=== PATIENT | male | born 1950 | race Caucasian/White ===

== ENCOUNTER → 2018-01-04 09:32 | Outpatient (CLI) | payer MEDICARE, SELFPAY ==
[2018-01-04 11:31] LABS: Absolute Lymphocyte Count 1.45 X10^3/ul (0.83-4.51); Absolute Neutrophil Count 4.1 X10^3/uL (2.0-7.7); Basophil# 0.04 X10^3/uL; Basophil% 0.6 % (0-1); Eosinophil# 0.18 X10^3/uL; Eosinophils% 2.7 % (0-5); Hematocrit 45.9 % (40-54); Hemoglobin 15.4 g/dl (13.0-16.5); Lymphocyte # 1.45 X10^3/ul (4.0); Lymphocyte % 21.8 % (19-41); Mean Corp Hgb Conc 33.6 g/gl (32-36); Mean Corpuscular Hgb 29.4 pg (27.0-32.0); Mean Corpuscular Volume 87.8 fL (80-94); Mean Platelet Vol. 9.4 fl (6.2-12.0); Monocyte# 0.82 X10^3/uL; Monocyte% 12.3 % (0-10); Neutrophil # 4.14 X10^3/uL (2.7-7.7); Neutrophil % 62.3 % (47-70); Platelet Count 281 K/mm3 (150-450); RBC Distribution Width CV 13.1 % (11.6-14.6); RBC Distribution Width SD 42.4 fl (35.1-43.9); Red Blood Count 5.23 M/mm3 (4.6-6.2); White Blood Count 6.7 K/mm3 (4.4-11.0)
[2018-01-04 11:34] LABS: POSITIVE COUNT NO; POSITIVE DIFFERENTIAL NO; POSITIVE MORPHOLOGY NO
[2018-01-04 11:58] LABS: ALB/GLOB Ratio 0.9 RATIO (0.9-2.4); AST(SGOT) 19 U/L (15-37); Alanine Aminotransfer ALT/SGPT 27 U/L (16-61); Albumin, Serum 3.5 g/dL (3.2-5.0); Alkaline Phosphatase 82 U/L (45-117); Anion Gap 6 (5-15); BUN 23 mg/dL (7-18); BUN/Creat Ratio 19.3 RATIO (10-20); Calcium,Total 8.7 mg/dL (8.5-10.1); Chloride 107 mmol/L (98-107); Creatinine, Serum 1.19 mg/dL (0.70-1.30); EST Glomerular Filtration Rate 65 mL/min (>60); Est Glom Filt Rate - Afr Amer 79 mL/min (>60); Globulin 3.8 g/dL (2.2-4.2); Glucose 77 mg/dL (74-106); Potassium 4.3 mmol/L (3.5-5.1); Protein, Total 7.3 g/dL (6.4-8.2); Sodium Level 142 mmol/L (136-145); Thyroid Stim Hormone (TSH) 1.33 uIU/mL (0.358-3.74)
[2018-01-04 12:01] LABS: Vitamin D,25 Hydroxy 45.7 ng/mL (29.95-100.01)
== END ==
PROVIDERS: Family Provider Family Medicine Geriatric Medicine; PCP Family Medicine Geriatric Medicine; Visit Provider Family Medicine Geriatric Medicine
DX: R53.83 Other fatigue (principal); E55.9 Vitamin D deficiency, unspecified
CPT/HCPCS: 36415; 80053; 82306; 84443; 85025

== ENCOUNTER → 2018-06-04 16:59 | Outpatient (CLI) | payer MEDICARE, SELFPAY ==
[2018-06-04 18:45] LABS: M R Staph aureus DNA By PCR Negative (Negative); Probe Check PASS; Specimen Processing Control PASS; Staph aureus DNA By PCR NEGATIVE (Negative)
== END ==
PROVIDERS: Family Provider Family Medicine Geriatric Medicine; PCP Family Medicine Geriatric Medicine; Visit Provider Family Medicine Geriatric Medicine
DX: L03.319 Cellulitis of trunk, unspecified (principal); B95.62 Methicillin resistant Staphylococcus aureus infection as the cause of diseases classified elsewhere
CPT/HCPCS: 87070; 87077; 87186; 87205; 87640

== ENCOUNTER → 2018-07-29 10:06 | Outpatient (CLI) | payer MEDICARE, SELFPAY ==
[2018-07-29 12:34] LABS: Absolute Lymphocyte Count 1.54 X10^3/ul (0.83-4.51); Absolute Neutrophil Count 4.1 X10^3/uL (2.0-7.7); Basophil# 0.05 X10^3/uL; Basophil% 0.8 % (0-1); Eosinophil# 0.26 X10^3/uL; Eosinophils% 3.9 % (0-5); Hematocrit 45.5 % (40-54); Hemoglobin 15.2 g/dl (13.0-16.5); Lymphocyte # 1.54 X10^3/ul (4.0); Lymphocyte % 23.3 % (19-41); Mean Corp Hgb Conc 33.4 g/gl (32-36); Mean Corpuscular Hgb 29.8 pg (27.0-32.0); Mean Corpuscular Volume 89.2 fL (80-94); Mean Platelet Vol. 9.5 fl (6.2-12.0); Monocyte# 0.63 X10^3/uL; Monocyte% 9.5 % (0-10); Neutrophil # 4.06 X10^3/uL (2.7-7.7); Neutrophil % 61.6 % (47-70); Platelet Count 288 K/mm3 (150-450); RBC Distribution Width CV 13.5 % (11.6-14.6); RBC Distribution Width SD 43.6 fl (35.1-43.9); White Blood Count 6.6 K/mm3 (4.4-11.0)
[2018-07-29 12:40] LABS: POSITIVE COUNT NO; POSITIVE DIFFERENTIAL NO; POSITIVE MORPHOLOGY NO
[2018-07-29 12:53] LABS: Vitamin D,25 Hydroxy 29.4 ng/mL (29.95-100.01)
[2018-07-29 12:59] LABS: AST(SGOT) 18 U/L (15-37); Alanine Aminotransfer ALT/SGPT 28 U/L (16-61); Albumin, Serum 3.5 g/dL (3.2-5.0); Alkaline Phosphatase 70 U/L (45-117); Anion Gap 9 (5-15); BUN 23 mg/dL (7-18); BUN/Creat Ratio 17.4 RATIO (10-20); Calcium,Total 8.6 mg/dL (8.5-10.1); Chloride 106 mmol/L (98-107); Creatinine, Serum 1.32 mg/dL (0.70-1.30); EST Glomerular Filtration Rate 58 mL/min (>60); Est Glom Filt Rate - Afr Amer 70 mL/min (>60); Globulin 3.6 g/dL (2.2-4.2); Glucose 89 mg/dL (74-106); Protein, Total 7.1 g/dL (6.4-8.2); Sodium Level 143 mmol/L (136-145); Thyroid Stim Hormone (TSH) 1.29 uIU/mL (0.358-3.74)
[2018-07-30 10:52] LABS: Hep C Antibodies <0.1 s/co ratio (0.0-0.9)
== END ==
PROVIDERS: Family Provider Family Medicine Geriatric Medicine; PCP Family Medicine Geriatric Medicine; Visit Provider Family Medicine Geriatric Medicine
DX: E55.9 Vitamin D deficiency, unspecified (principal); R53.83 Other fatigue; Z12.5 Encounter for screening for malignant neoplasm of prostate; Z13.89 Encounter for screening for other disorder
CPT/HCPCS: 36415; 80053; 82306; 84153; 84443; 85025; 86803; G0103

== ENCOUNTER → 2018-10-29 07:51 | Outpatient (CLI) | payer MEDICARE, OTHER, SELFPAY ==
--- NOTE | 2018-10-29 07:56 | CDU_ITS ---
Reason For Study: Carotid Bruit Rt. Velocities/BP Lt. Velocities/BP Prox CCA 85/23.5 cm/sec. Prox CCA 112/31.4 cm/sec. Mid CCA 101/22.3 cm/sec. Mid CCA 134/33 cm/sec. Dist CCA 93.8/17.6 cm/sec. Dist CCA 97.4/28.3 cm/sec. Prox ICA 64/18.5 cm/sec. Prox ICA 73.3/20.5 cm/sec. Mid ICA 65.2/25.2 cm/sec. Mid ICA 64.8/21 cm/sec. Dist ICA 66.3/20.7 cm/sec. Dist ICA 52.9/19.6 cm/sec. Rt. ICA/CCA = 0.71. Lt. ICA/CCA = 0.65. Prox ECA 84.4/13.7 cm/sec. Prox ECA 88.5/15.8 cm/sec. Rt. Vert. 52.2/13 cm/sec. Lt. Vert. 61/14.1. cm/sec. Right Extracranial There is intimal thickening but no significant atherosclerotic plaque noted in the right common carotid artery. There is heterogeneous, smooth atherosclerotic plaque noted in the right internal carotid artery. There is no significant atherosclerotic plaque noted in the right external carotid artery. Antegrade flow is noted in the right vertebral artery. Left Extracranial There is intimal thickening but no significant atherosclerotic plaque noted in the left common carotid artery. There is homogeneous, smooth atherosclerotic plaque noted in the left internal carotid artery. There is no significant atherosclerotic plaque noted in the left external carotid artery. Antegrade flow is noted in the left vertebral artery. Procedure Carotid Duplex [id number]. Exam performed in department. Interpretation Summary Mild (<50%) stenosis right extracranial internal carotid. Mild (<50%) stenosis left extracranial internal carotid. Flow within the vertebral arteries is antegrade bilaterally. Ordering Physician: Rolando Anna Referring Physician: Rolando Anna Chi Performed By: Gaby Chaudhry RVT and Student
== END ==
PROVIDERS: Family Provider Family Medicine Geriatric Medicine; PCP Family Medicine Geriatric Medicine; Referring Provider Family Medicine Geriatric Medicine; Visit Provider Family Medicine Geriatric Medicine
DX: R09.89 Other specified symptoms and signs involving the circulatory and respiratory systems (principal)
CPT/HCPCS: 93880

== ENCOUNTER → 2019-07-30 09:02 | Outpatient (CLI) | payer MEDICARE, SELFPAY ==
[2019-07-30 12:51] LABS: Absolute Lymphocyte Count 1.81 X10^3/uL (0.83-4.51); Absolute Neutrophil Count 4.3 X10^3/uL (2.0-7.7); Basophil# 0.09 X10^3/uL; Basophil% 1.2 % (0-1); Eosinophil# 0.24 X10^3/uL; Eosinophils% 3.3 % (0-5); Hematocrit 46.2 % (40-54); Hemoglobin 15.1 g/dL (13.0-16.5); Lymphocyte # 1.81 X10^3/ul (4.0); Lymphocyte % 24.9 % (19-41); Mean Corp Hgb Conc 32.7 g/dL (32-36); Mean Corpuscular Hgb 29.5 pg (27.0-32.0); Mean Corpuscular Volume 90.4 fL (80-94); Mean Platelet Vol. 9.9 fl (6.2-12.0); NRBC Flagged by Analyzer 0 % (0-5); Neutrophil % 59.2 % (47-70); Platelet Count 293 K/mm3 (150-450); RBC Distribution Width CV 12.9 % (11.6-14.6); RBC Distribution Width SD 42.6 fl (35.1-43.9); Red Blood Count 5.11 M/mm3 (4.6-6.2); White Blood Count 7.3 K/mm3 (4.4-11.0)
[2019-07-30 13:14] LABS: Vitamin D,25 Hydroxy 44.9 ng/mL (29.95-100.01)
[2019-07-30 13:16] LABS: ALB/GLOB Ratio 1.2 RATIO (0.9-2.4); AST(SGOT) 18 U/L (15-37); Alanine Aminotransfer ALT/SGPT 23 U/L (16-61); Albumin, Serum 3.8 g/dL (3.2-5.0); Alkaline Phosphatase 79 U/L (45-117); Anion Gap 6 (5-15); BUN 19 mg/dL (7-18); BUN/Creat Ratio 15.3 RATIO (10-20); Chloride 107 mmol/L (98-107); Creatinine, Serum 1.24 mg/dL (0.70-1.30); EST Glomerular Filtration Rate 62 mL/min (>60); Est Glom Filt Rate - Afr Amer 75 mL/min (>60); Globulin 3.3 g/dL (2.2-4.2); Glucose 94 mg/dL (74-106); PSA,Total - Annual Screen 0.88 ng/mL (0.00-4.00); Potassium 4.4 mmol/L (3.5-5.1); Protein, Total 7.1 g/dL (6.4-8.2); Sodium Level 141 mmol/L (136-145); Thyroid Stim Hormone (TSH) 1.04 uIU/mL (0.358-3.74)
== END ==
PROVIDERS: Family Provider Family Medicine Geriatric Medicine; PCP Family Medicine Geriatric Medicine; Visit Provider Family Medicine Geriatric Medicine
DX: R53.83 Other fatigue (principal); E55.9 Vitamin D deficiency, unspecified; E23.6 Other disorders of pituitary gland; Z12.5 Encounter for screening for malignant neoplasm of prostate
CPT/HCPCS: 36415; 80053; 82306; 84153; 84403; 84443; 85025; G0103

== ENCOUNTER → 2019-10-20 13:58 | Outpatient (CLI) | payer MEDICARE, OTHER, SELFPAY ==
[2019-10-19 09:21] VITALS: BMI 28.3
== END ==
PROVIDERS: PCP Family Medicine Geriatric Medicine; Referring Provider Physician Assistant; Visit Provider Physician Assistant
DX: J02.9 Acute pharyngitis, unspecified (principal)
CPT/HCPCS: 87070; 87077; 87186

== ENCOUNTER → 2020-08-03 14:24 | Outpatient (CLI) | payer MEDICARE, OTHER, SELFPAY ==
[2019-11-24 08:08] VITALS: BMI 28.3
[2020-08-03 17:17] LABS: Absolute Lymphocyte Count 1.59 X10^3/uL (0.83-4.51); Absolute Neutrophil Count 4.9 X10^3/uL (2.0-7.7); Basophil# 0.08 X10^3/uL; Basophil% 1.1 % (0-1); Eosinophil# 0.25 X10^3/uL; Eosinophils% 3.3 % (0-5); Hematocrit 45.3 % (40-54); Hemoglobin 14.4 g/dL (13.0-16.5); Lymphocyte # 1.59 X10^3/ul (4.0); Lymphocyte % 21.2 % (19-41); Mean Corp Hgb Conc 31.8 g/dL (32-36); Mean Corpuscular Hgb 28.8 pg (27.0-32.0); Mean Corpuscular Volume 90.6 fL (80-94); Mean Platelet Vol. 9.4 fl (6.2-12.0); Monocyte# 0.68 X10^3/uL; Monocyte% 9.1 % (0-10); NRBC Flagged by Analyzer 0 % (0-5); Neutrophil # 4.86 X10^3/uL (2.7-7.7); Neutrophil % 64.9 % (47-70); Platelet Count 303 K/mm3 (150-450); RBC Distribution Width CV 12.9 % (11.6-14.6); RBC Distribution Width SD 42.7 fl (35.1-43.9); White Blood Count 7.5 K/mm3 (4.4-11.0)
[2020-08-03 17:23] LABS: Vitamin D,25 Hydroxy 37.6 ng/mL
[2020-08-03 17:36] LABS: AST(SGOT) 21 U/L (15-37); Alanine Aminotransfer ALT/SGPT 28 U/L (16-61); Albumin, Serum 3.6 g/dL (3.2-5.0); Alkaline Phosphatase 90 U/L (45-117); Anion Gap 7 (5-15); BUN 23 mg/dL (7-18); BUN/Creat Ratio 20.4 RATIO (10-20); Calcium,Total 8.3 mg/dL (8.5-10.1); Chloride 107 mmol/L (98-107); Creatinine, Serum 1.13 mg/dL (0.70-1.30); EST Glomerular Filtration Rate 69 mL/min (>60); Est Glom Filt Rate - Afr Amer 83 mL/min (>60); Globulin 3.5 g/dL (2.2-4.2); Glucose 128 mg/dL (74-106); Potassium 3.6 mmol/L (3.5-5.1); Protein, Total 7.1 g/dL (6.4-8.2); Sodium Level 141 mmol/L (136-145); Thyroid Stim Hormone (TSH) 1.54 uIU/mL (0.358-3.74)
== END ==
PROVIDERS: PCP Family Medicine Geriatric Medicine; Visit Provider Family Medicine Geriatric Medicine
DX: R53.83 Other fatigue (principal); E55.9 Vitamin D deficiency, unspecified; E23.6 Other disorders of pituitary gland; Z12.5 Encounter for screening for malignant neoplasm of prostate
CPT/HCPCS: 36415; 80053; 82306; 84153; 84403; 84443; 85025; G0103

== ENCOUNTER → 2021-02-25 10:44 | Outpatient (CLI) | payer MEDICARE, OTHER, SELFPAY ==
[2019-11-24 08:08] VITALS: BMI 28.3
[2021-02-25 12:24] LABS: Absolute Lymphocyte Count 2.24 X10^3/uL (0.83-4.51); Absolute Neutrophil Count 5.6 X10^3/uL (2.0-7.7); Basophil# 0.06 X10^3/uL; Basophil% 0.7 % (0-1); Eosinophils% 1.1 % (0-5); Hematocrit 45.6 % (40-54); Hemoglobin 15.2 g/dL (13.0-16.5); Lymphocyte # 2.24 X10^3/ul (0.83-4.51); Lymphocyte % 24.5 % (19-41); Mean Corp Hgb Conc 33.3 g/dL (32-36); Mean Corpuscular Hgb 29.4 pg (27.0-32.0); Mean Corpuscular Volume 88.2 fL (80-94); Mean Platelet Vol. 9.5 fl (6.2-12.0); NRBC Flagged by Analyzer 0 % (0-5); Neutrophil # 5.64 X10^3/uL (2.7-7.7); Neutrophil % 61.5 % (47-70); Platelet Count 295 K/mm3 (150-450); RBC Distribution Width CV 12.5 % (11.6-14.6); RBC Distribution Width SD 40.7 fl (35.1-43.9); Red Blood Count 5.17 M/mm3 (4.6-6.2); White Blood Count 9.2 K/mm3 (4.4-11.0)
[2021-02-25 12:32] LABS: Anion Gap 4 (5-15); BUN 23 mg/dL (7-18); BUN/Creat Ratio 20.7 RATIO (10-20); Calcium,Total 8.9 mg/dL (8.5-10.1); Chloride 107 mmol/L (98-107); Creatinine, Serum 1.11 mg/dL (0.70-1.30); EST Glomerular Filtration Rate 70 mL/min (>60); Est Glom Filt Rate - Afr Amer 84 mL/min (>60); Glucose 70 mg/dL (74-106); Sodium Level 141 mmol/L (136-145)
== END ==
PROVIDERS: PCP Family Medicine Geriatric Medicine; Visit Provider Family Medicine Geriatric Medicine
DX: G92 Toxic encephalopathy (principal)
CPT/HCPCS: 36415; 80048; 85025

== ENCOUNTER → 2021-03-09 06:26 | Outpatient (CLI) | payer MEDICARE, OTHER, SELFPAY ==
[2019-11-24 08:08] VITALS: BMI 28.3
[2021-03-01 08:09] VITALS: BMI 28.3
--- NOTE | 2021-03-09 06:37 | MRI_ITS ---
ACR Level 3 findings have been noted. An addendum which confirms receipt of the report will follow. STUDY: MRI BRAIN WITHOUT CONTRAST REASON FOR EXAM: Male, 70 years old. SEIZURE, PT C/O SLEEPING TOO SOUNDLY TECHNIQUE: Standardized multiplanar fat and water weighted pulse sequences were obtained. COMPARISON: None. FINDINGS: Normal size of the ventricles and extra-axial spaces for the patient''s age. There are multiple white matter hyperintensities, distributed throughout the deep white matter tracts of the cerebral hemispheres, consistent with mild chronic white matter ischemic changes. There is a small focal area of increased FLAIR hyperintensity and minimal volume loss involving the right frontal lobe adjacent to the anterior horn (axial image #9 series 5) Normal flow voids within the major intracranial circulation suggesting patency by spin echo criteria. Normal sella turcica, pituitary gland, infundibular stalk, optic chiasm and hypothalamus. Normal tectal plate and pineal gland. Normal midbrain, juwan and medulla. Normal cerebellum. Normal basal cisterns. MRI/Brain without Contrast IMPRESSION: Right frontal lesion. Leading differential considerations include chronic ischemic change, vascular lesion and neoplastic disease. Comparison with prior examinations if available or further evaluation with contrast-enhanced MRI/MRA is recommended. Electronically Signed: Harley Alvarenga MD at 8:48 EDT Tel , Service support ,
== END ==
PROVIDERS: PCP Family Medicine Geriatric Medicine; Referring Provider Family Medicine Geriatric Medicine; Visit Provider Family Medicine Geriatric Medicine
DX: G40.909 Epilepsy, unspecified, not intractable, without status epilepticus (principal)
CPT/HCPCS: 70551

== ENCOUNTER → 2021-03-10 11:22 | Outpatient (CLI) | payer MEDICARE, OTHER, SELFPAY ==
[2021-03-10 08:13] VITALS: BMI 28.3
--- NOTE | 2021-03-10 11:52 | MRI_ITS ---
STUDY: MRI BRAIN WITH CONTRAST REASON FOR EXAM: Male, 70 years old. BRAIN MASS TECHNIQUE: Standardized multiplanar fat and water weighted pulse sequences were obtained. 17cc iv dotarem was administered for the contrast portion of the examination. COMPARISON: 03/09/2021 FINDINGS: No contrast enhancement of the previously described hyperintensity in the right frontal lobe likely consistent with an area of gliosis. No other contrast-enhancing mass.. MRI/Brain WITH Contrast IMPRESSION: Normal enhanced MRI of the brain. Electronically Signed: Amado Lerma MD at 13:51 EDT Tel , Service support ,
--- NOTE | 2021-03-10 11:54 | MRI_ITS ---
STUDY: MRA OF THE HEAD WITHOUT CONTRAST REASON FOR EXAM: Male, 70 years old. BRAIN MASS TECHNIQUE: 3-D [id number] (TOF) imaging was performed with MIPs. The study was performed unenhanced. COMPARISON: None. FINDINGS: Normal bilateral petrous carotid arteries. Normal right cavernous carotid artery with a normal supraclinoid bifurcation. Normal left cavernous carotid artery with a normal supraclinoid bifurcation. Normal right A1 segments of the anterior cerebral artery. Normal left A1 segments of the anterior cerebral artery. Normal intact anterior communicating artery (ACOM). Normal bilateral A2 segments of the anterior cerebral arteries. Normal right M1 and M2 segments of the middle cerebral arteries, with a normal M1 bifurcation. Normal left M1 and M2 segments of the middle cerebral arteries, with a normal M1 bifurcation. Normal right posterior communicating artery (PCOM). Normal left posterior communicating artery (PCOM). Normal bilateral vertebral arteries. Normal basilar artery with a normal basilar bifurcation. The visualized bilateral superior cerebellar (SCA) arteries are normal. Normal bilateral P1, P2 and visualized P3 segments of the posterior cerebral arteries. There is no demonstrated aneurysm of the [place]. There is no major vessel occlusion or hemodynamically significant stenosis. There is no demonstrated abnormality of the visualized brain. MRI/MRA Head ONLY without Contrast IMPRESSION: Normal MRA of the head Electronically Signed: Amado Lerma MD at 13:53 EDT Tel , Service support ,
--- NOTE | 2021-03-10 11:55 | MRI_ITS ---
STUDY: MRA NECK WITH AND WITHOUT CONTRAST REASON FOR EXAM: Male, 70 years old. BRAIN MASS TECHNIQUE: 3-D qpfu-wc-kktiig (TOF) imaging was performed in an 1.5 T MRI scanner. iv dotarem 17cc was administered for the contrast enhanced images. COMPARISON: None. FINDINGS: RIGHT CAROTID ARTERIES: Normal right common carotid artery (CCA). Normal right common carotid bulb. Normal origin of the right internal carotid (ICA) artery without a hemodynamically significant stenosis. Normal visualized cervical portion of the right internal carotid artery. Normal origin of the right external carotid artery (ECA). LEFT CAROTID ARTERIES: Normal left common carotid artery (CCA). Normal left common carotid bulb. Normal origin of the left internal carotid (ICA) artery without a hemodynamically significant stenosis. Normal visualized cervical portion of the left internal carotid artery. Normal origin of the left external carotid artery (ECA). VERTEBRAL ARTERIES: Normal antegrade flow within the bilateral vertebral artery without a hemodynamically significant stenosis. MRI/MRA Neck WITH and W/O Contrast IMPRESSION: Normal bilateral cervical carotid and vertebral arteries. Electronically Signed: Amado Lerma MD at 13:54 EDT Tel , Service support ,
== END ==
PROVIDERS: PCP Family Medicine Geriatric Medicine; Referring Provider Family Medicine Geriatric Medicine; Visit Provider Family Medicine Geriatric Medicine
DX: G93.9 Disorder of brain, unspecified (principal); D49.9 Neoplasm of unspecified behavior of unspecified site
CPT/HCPCS: 70544; 70549; 70552; A9575

== ENCOUNTER → 2021-03-14 07:36 | Outpatient (CLI) | payer MEDICARE, OTHER, SELFPAY ==
[2021-03-10 08:13] VITALS: BMI 28.3
[2021-03-14 09:12] LABS: Glucose GTT-30 minutes 174 mg/dL (110-170)
[2021-03-14 09:23] LABS: Cholesterol 162 mg/dL (200); High Density Lipoprotein 63 mg/dL; Thyroid Stim Hormone (TSH) 1.85 uIU/mL (0.358-3.74); Triglycerides 71 mg/dL; Very Low Density Lipoprotein 14 mg/dL (5-40)
[2021-03-14 10:27] LABS: Glucose GTT- 1 Hour 173 mg/dL (120-170)
[2021-03-14 10:34] LABS: Glucose GTT- 2 Hour 150 mg/dL (70-120)
[2021-03-14 12:52] LABS: Glucose GTT- 3 Hour 122 mg/dL (74-106)
[2021-03-14 13:07] LABS: Glucose GTT- Fasting 90 mg/dL (74-106)
== END ==
PROVIDERS: PCP Family Medicine Geriatric Medicine; Referring Provider Psychiatry & Neurology Neurology; Visit Provider Psychiatry & Neurology Neurology
DX: E11.9 Type 2 diabetes mellitus without complications (principal); E16.2 Hypoglycemia, unspecified; G40.909 Epilepsy, unspecified, not intractable, without status epilepticus
CPT/HCPCS: 36415; 80061; 82951; 82952; 84443

== ENCOUNTER → 2021-03-28 07:55 | Outpatient (CLI) | payer MEDICARE, OTHER, SELFPAY ==
[2019-11-24 08:08] VITALS: BMI 28.3
[2021-03-10 08:13] VITALS: BMI 28.3
--- NOTE | 2021-03-28 10:27 | TELEMED_ITS ---
[facility] Tele[facility] has confirmed receipt of a request for visit. This document confirms receipt of the order initiating the consult. To find the results of the consultation, please view the patient's reports for the scanned Telemed Consult.
== END ==
PROVIDERS: PCP Family Medicine Geriatric Medicine; Referring Provider Family Medicine Geriatric Medicine; Visit Provider Family Medicine Geriatric Medicine
DX: G40.909 Epilepsy, unspecified, not intractable, without status epilepticus (principal)
CPT/HCPCS: 95819

== ENCOUNTER → 2021-05-05 14:48 | Outpatient (CLI) | payer MEDICARE, OTHER, SELFPAY ==
[2021-03-10 08:13] VITALS: BMI 28.3
[2021-05-05 18:26] LABS: Magnesium 2.3 mg/dL (1.6-2.6)
== END ==
PROVIDERS: PCP Family Medicine Geriatric Medicine; Referring Provider Psychiatry & Neurology Neurology; Visit Provider Psychiatry & Neurology Neurology
DX: G40.909 Epilepsy, unspecified, not intractable, without status epilepticus (principal)
CPT/HCPCS: 36415; 83735

== ENCOUNTER → 2021-08-24 10:50 | Outpatient (CLI) | payer MEDICARE, OTHER, SELFPAY ==
[2021-08-24 12:19] LABS: Absolute Lymphocyte Count 1.42 X10^3/uL (0.83-4.51); Absolute Neutrophil Count 4.3 X10^3/uL (2.0-7.7); Basophil# 0.08 X10^3/uL; Basophil% 1.2 % (0-1); Eosinophil# 0.23 X10^3/uL; Eosinophils% 3.4 % (0-5); Hematocrit 46.1 % (40-54); Hemoglobin 15.2 g/dL (13.0-16.5); Lymphocyte # 1.42 X10^3/ul (0.83-4.51); Lymphocyte % 20.8 % (19-41); Mean Corpuscular Hgb 29.4 pg (27.0-32.0); Mean Corpuscular Volume 89.2 fL (80-94); Mean Platelet Vol. 9.6 fl (6.2-12.0); Monocyte# 0.82 X10^3/uL; NRBC Flagged by Analyzer 0 % (0-5); Neutrophil # 4.26 X10^3/uL (2.7-7.7); Neutrophil % 62.2 % (47-70); Platelet Count 315 K/mm3 (150-450); RBC Distribution Width CV 12.7 % (11.6-14.6); RBC Distribution Width SD 41.5 fl (35.1-43.9); Red Blood Count 5.17 M/mm3 (4.6-6.2); White Blood Count 6.8 K/mm3 (4.4-11.0)
[2021-08-24 12:39] LABS: ALB/GLOB Ratio 0.9 RATIO (0.9-2.4); AST(SGOT) 18 U/L (15-37); Alanine Aminotransfer ALT/SGPT 22 U/L (16-61); Albumin, Serum 3.5 g/dL (3.2-5.0); Alkaline Phosphatase 90 U/L (45-117); Anion Gap 6 (5-15); BUN 17 mg/dL (7-18); BUN/Creat Ratio 13.7 RATIO (10-20); Chloride 106 mmol/L (98-107); Creatinine, Serum 1.24 mg/dL (0.70-1.30); EST Glomerular Filtration Rate 61 mL/min (>60); Est Glom Filt Rate - Afr Amer 74 mL/min (>60); Globulin 3.7 g/dL (2.2-4.2); Glucose 89 mg/dL (74-106); PSA,Total - Annual Screen 1.09 ng/mL (0.00-4.00); Potassium 4.3 mmol/L (3.5-5.1); Protein, Total 7.2 g/dL (6.4-8.2); Sodium Level 140 mmol/L (136-145); Thyroid Stim Hormone (TSH) 1.68 uIU/mL (0.358-3.74)
[2021-08-24 12:48] LABS: Vitamin D,25 Hydroxy 44.9 ng/mL
== END ==
PROVIDERS: PCP Family Medicine Geriatric Medicine; Visit Provider Family Medicine Geriatric Medicine
DX: R53.83 Other fatigue (principal); E55.9 Vitamin D deficiency, unspecified; E23.6 Other disorders of pituitary gland; Z12.5 Encounter for screening for malignant neoplasm of prostate
CPT/HCPCS: 36415; 80053; 82306; 84153; 84403; 84443; 85025; G0103

== ENCOUNTER 2022-01-03 03:05 | Emergency (ER) | payer MEDICARE, OTHER, SELFPAY ==
[2022-01-03 03:07] VITALS: BP 150/88; PULSE 71; RESP 11; TEMP 36.8; O2SAT 94; BMI 28.5
--- NOTE | 2022-01-03 03:32 | RAD_ITS ---
STUDY: X-RAY CHEST REASON FOR EXAM: Male, 71 years old. seizure TECHNIQUE: AP COMPARISON: 09/19/2013 FINDINGS: The lungs are clear and expanded. There is no demonstrated pleural abnormality. Normal size heart. Normal mediastinum and sky. Normal visualized pulmonary arteries. Normal visualized aortic arch and descending thoracic aorta. Normal visualized thoracic spine. Normal visualized ribs, clavicles, and shoulders. There is no demonstrated abnormality of the visualized soft tissue structures of the upper abdomen. RAD/Chest 1 View (Portable) IMPRESSION: No acute cardiopulmonary disease. Electronically Signed: Melvin Cloud MD at 4:22 EDT ,
[2022-01-03 03:55] LABS: Absolute Lymphocyte Count 0.62 X10^3/uL (0.83-4.51); Absolute Neutrophil Count 9.6 X10^3/uL (2.0-7.7); Basophil# 0.07 X10^3/uL; Basophil% 0.7 % (0-1); Eosinophil# 0.03 X10^3/uL; Eosinophils% 0.3 % (0-5); Hematocrit 46.2 % (40-54); Hemoglobin 15.5 g/dL (13.0-16.5); Lymphocyte # 0.62 X10^3/ul (0.83-4.51); Lymphocyte % 5.8 % (19-41); Mean Corp Hgb Conc 33.5 g/dL (32-36); Mean Corpuscular Hgb 29.1 pg (27.0-32.0); Mean Corpuscular Volume 86.8 fL (80-94); Mean Platelet Vol. 8.6 fl (6.2-12.0); Monocyte# 0.37 X10^3/uL; Monocyte% 3.4 % (0-10); NRBC Flagged by Analyzer 0 % (0-5); Neutrophil # 9.62 X10^3/uL (2.7-7.7); Neutrophil % 89.3 % (47-70); Platelet Count 305 K/mm3 (150-450); RBC Distribution Width CV 12.6 % (11.6-14.6); RBC Distribution Width SD 39.8 fl (35.1-43.9); Red Blood Count 5.32 M/mm3 (4.6-6.2); White Blood Count 10.8 K/mm3 (4.4-11.0)
[2022-01-03 04:06] LABS: Anion Gap 5 (5-15); BUN 24 mg/dL (7-18); BUN/Creat Ratio 18.6 RATIO (10-20); Calcium,Total 8.5 mg/dL (8.5-10.1); Chloride 107 mmol/L (98-107); Creatinine, Serum 1.29 mg/dL (0.70-1.30); EST Glomerular Filtration Rate 59 mL/min (>60); Est Glom Filt Rate - Afr Amer 71 mL/min (>60); Estimated Creatinine Clearance 49.82 ml/min; Glucose 137 mg/dL (74-106); Magnesium 2.2 mg/dL (1.6-2.6); Potassium 4.5 mmol/L (3.5-5.1); Sodium Level 138 mmol/L (136-145)
[2022-01-03 04:28] LABS: Bacteria 0 SEEN /hpf (None Seen); Red Blood Cells-Urine 0 SEEN /hpf (0-5); Squamous Epithelial Cells - UA 0 SEEN /hpf (0-5)
[2022-01-03 04:29] LABS: Color, Urine Yellow (Yellow); Glucose, Dipstick Normal (Normal); Ketone-Dipstick 5 mg/dl (Negative); Leukocyte Esterase-Dipstick Negative /ul (Negative); Nitrite-Dipstick Negative (Negative); Occult Blood-Urine Negative /ul (Negative); Protein-Dipstick 15 mg/dl (Negative); Specific Gravity, Urine 1.025 (1.002-1.030); Urine Bilirubin Dipstick Negative (Negative); Urine Clarity Clear (Clear); Urine Urobilinogen Normal (Normal)
[2022-01-03 04:41] LABS: Mucous, Urine 1+ /hpf (<or=2+); White Blood Cells 0-5 SEEN /hpf (0-5)
--- NOTE | 2022-01-03 05:00 | EDS_ITS ---
HPI History of Present Illness Chief Complaint: Seizure Narrative Narrative: Patient is a 71-year-old male who is seen approximately a year ago secondary to a seizure-like event. At that time he was worked up and there was no obvious cause and he was discharged. He states he followed up with neurology who could not reproduce the seizure and as he only had a single event did not recommend he start any type of anticonvulsants. Patient states he has been doing well but reported this evening he was sleeping and then his awoke to him shaking with stiff extremities and being unresponsive. She states this lasted for 10 to 15-minute and then patient stopped this activity but his mental status was depressed consistent with a postictal phase. Therefore he was brought to the hospital for evaluation. Upon arrival to the hospital the patient is awake alert and oriented. He states he has no recollection of the event. He denies any recent head trauma or sick symptoms. He denies any new medication change. He states overall he feels normal at this time but because of the seizure-like activity was brought back in for reevaluation [facility] Medical History Landaverde's palsy Fatigue Hypercholesterolemia Home Medications atorvastatin 20 mg tablet 20 mg PO QHS tab 03/10/21 [History Last Taken Unknown] cholecalciferol (vitamin D3) 25 mcg (1,000 unit) capsule 25 mcg PO DAILY 03/10/21 [History Last Taken Unknown] Allergy/AdvReac Type Severity Reaction Status Date / Time mussels Allergy Food Verified 01/03/22 03:06 Allergy Family History Mother CVA (cerebral vascular accident) Hypertension Father Myocardial infarction CAD (coronary artery disease) Grandmother Osteoporosis Daughter CVA (cerebral vascular accident) Surgical History History of cataract surgery Social History Smoking Status: Never smoker Electronic Cigarette Use: not used second hand exposure: No alcohol intake: current alcohol intake frequency: 0-2 drinks per day Alcohol type: wine substance use type: former substance user Date of last use: Used Marijuana when he was a teenager ROS ROS ED Constitutional Constitutional ED: Denies chills or fever(s) ENT ENT ED: Denies sore throat Cardiovascular Cardiovascular: Denies chest pain Respiratory/Chest Respiratory/Chest: Denies cough or dyspnea Gastrointestinal Gastrointestinal: Denies abdominal pain, diarrhea, nausea or vomiting Genitourinary Genitourinary ED: Denies dysuria Musculoskeletal Musculoskeletal: Denies myalgias Integumentary Denies rash Neurologic Neurologic: Reports other Details: Positive seizure ; Denies headache(s) Hematologic/Lymphatic Hematologic/Lymphatic: Denies easy bleeding or easy bruising EXAM Physical Exam Const Vital Signs: 01/03/22 03:07 01/03/22 05:11 Temperature 98.3 F Temperature Source Temporal Pulse Rate 71 61 Respiratory Rate 11 L 16 Blood Pressure 150/88 H 128/78 H Blood Pressure Mean 108 Pulse Ox 94 97 Oxygen Delivery Method Room Air Positive well nourished and well developed General Appearance ED: well developed HEENT Reports moist mucous membranes HEENT Narrative: Patient has abrasions to his right inner lower lip as well as the right side of the tongue consistent with tonic-clonic seizure activity Eyes PERRL and EOMs intact bilaterally Neck supple Resp normal respiratory effort and clear to auscultation bilaterally Cardio regular rate and regular rhythm GI normal to inspection, nondistended, normoactive bowel sounds, non-tender, non- distended and no masses Auscultation: normoactive bowel sounds Palpation: soft Extremity normal to inspection Neuro oriented x3 and CN's II-XII intact bilaterally Neuro Narrative: NIH stroke scale score of 0 Sensorium / Orientation: alert Motor Exam: strength 5/5 throughout Psych mental status grossly normal Skin no rashes or lesions noted MDM MDM MDM Narrative Medical decision making narrative: Patient presented to the ER no acute distress he was awake alert and oriented x3 with normal neurologic exam and stroke scale score of 0. His history and physical exam is most consistent with a seizure. Secondary to this I did elect to check basic laboratory studies to look for a cause of a breakthrough seizure. Work-up revealed no clinically significant finding. Patient was watched in the ER and he had no further seizure-like activity. Therefore at this time I do not feel there is need for further evaluation and patient can be discharged and follow-up with neurology to discuss further testing. Lab Data Attestation: I reviewed the patient's lab results. Labs: Laboratory Results - last 24 hr 01/03/22 01/03/22 01/03/22 03:47 03:47 04:20 WBC 10.8 RBC 5.32 Hgb 15.5 Hct 46.2 MCV 86.8 MCH 29.1 MCHC 33.5 RDW Std Deviation 39.8 RDW Coeff of Seb 12.6 Plt Count 305 MPV 8.6 Immature Gran % (Auto) 0.500 Neut % (Auto) 89.3 H Lymph % (Auto) 5.8 L Caroline % (Auto) 3.4 Eos % (Auto) 0.3 Baso % (Auto) 0.7 Absolute Neuts (auto) 9.6 H Absolute Lymphs (auto) 0.62 L Nucleated RBC % 0 Sodium 138 Potassium 4.5 Chloride 107 Carbon Dioxide 26.0 Anion Gap 5 BUN 24 H Creatinine 1.29 Estim Creat Clear Calc 49.82 Est GFR (MDRD) Af Amer 71 Est GFR (MDRD) Non-Af 59 L BUN/Creatinine Ratio 18.6 Glucose 137 H Calcium 8.5 Magnesium 2.2 Urine Color Yellow Urine Clarity Clear Urine pH 5.0 Ur Specific Marion 1.025 Urine Protein 15 H Urine Glucose (UA) Normal Urine Ketones 5 H Urine Occult Blood Negative Urine Nitrite Negative Urine Bilirubin Negative Urine Urobilinogen Normal Ur Leukocyte Esterase Negative Urine RBC 0 SEEN Urine WBC 0-5 SEEN Ur Squamous Epith Cells 0 SEEN Urine Bacteria 0 SEEN Urine Mucus 1+ Radiography Diagnostic Testing: Clinical Impression(s) from Imaging Studies Chest X-Ray 01/03/22 03:32 IMPRESSION: No acute cardiopulmonary disease. Electronically Signed: Melvin Cloud MD at 4:22 EDT , Discharge Plan Triage Chief Complaint: Seizure ED Provider: Juan Martin Dx/Rx/DC Orders Clinical Impression: Seizure-like activity Instructions: ED Seizure New Onset Unknown ... Prescriptions: No Action atorvastatin 20 mg tablet 20 mg PO QHS RF: 0 cholecalciferol (vitamin D3) 25 mcg (1,000 unit) capsule 25 mcg PO DAILY RF: 0 Primary Care Provider: Rolando Anna Chi Referrals: Arben Boyer MD [STAFF PHYSICIAN] - 3-5 Days Rolando Anna Chi, MD [Primary Care Provider] - Activity Restrictions/Additional Instructions: Please follow-up with your family doctor and neurology based on the breakthrough seizure which occurred this evening. Please return to the ER should you have any further concerns Disposition Disposition: Home, Self Care Discharge Date/Time: 01/03/22 05:12
[2022-01-03 05:11] VITALS: BP 128/78; PULSE 61; RESP 16; O2SAT 97
== END 2022-01-03 05:12 | disposition home or self-care (01) ==
PROVIDERS: Emergency Provider Emergency Medicine; PCP Family Medicine Geriatric Medicine; Visit Provider Emergency Medicine
DX: R56.9 Unspecified convulsions (principal); F12.90 Cannabis use, unspecified, uncomplicated; E78.00 Pure hypercholesterolemia, unspecified; F32.A Depression, unspecified; G51.0 Bell's palsy
CPT/HCPCS: 36415; 71045; 80048; 81001; 83735; 85025; 99283

== ENCOUNTER → 2022-02-08 | Outpatient (CLI) | payer MEDICARE, OTHER, SELFPAY ==
[2022-02-13 16:31] LABS: KEPPRA (LEVETIRACETAM) 11.6 ug/mL (10.0-40.0)
== END | disposition home or self-care (01) ==
LOC: MTLAB 08:10
PROVIDERS: PCP Family Medicine Geriatric Medicine; Referring Provider Nurse Practitioner Family; Visit Provider Nurse Practitioner Family
DX: G40.909 Epilepsy, unspecified, not intractable, without status epilepticus (principal)
CPT/HCPCS: 36415; 80177

== ENCOUNTER → 2022-02-20 | Outpatient (CLI) | payer MEDICARE, OTHER, SELFPAY | END | disposition home or self-care (01) | LOC: PSN 06:17 | PROVIDERS: PCP Family Medicine Geriatric Medicine; Referring Provider Family Medicine Geriatric Medicine; Visit Provider Family Medicine Geriatric Medicine | DX: G40.909 Epilepsy, unspecified, not intractable, without status epilepticus (principal) | CPT/HCPCS: 95819 ==

== ENCOUNTER → 2022-03-02 | Outpatient (CLI) | payer MEDICARE, OTHER, SELFPAY | END | disposition home or self-care (01) | LOC: MTLAB 11:00 | PROVIDERS: PCP Family Medicine Geriatric Medicine; Referring Provider Nurse Practitioner Family; Visit Provider Nurse Practitioner Family | DX: G40.909 Epilepsy, unspecified, not intractable, without status epilepticus (principal) | CPT/HCPCS: 36415; 82140 ==

== ENCOUNTER 2022-10-14 07:19 | Outpatient (CLI) | payer MEDICARE, OTHER, SELFPAY ==
[2022-10-14 08:55] LABS: Absolute Lymphocyte Count 1.52 X10^3/uL (0.83-4.51); Absolute Neutrophil Count 4.1 X10^3/uL (2.0-7.7); Basophil# 0.07 X10^3/uL; Basophil% 1.1 % (0-1); Eosinophil# 0.21 X10^3/uL; Eosinophils% 3.2 % (0-5); Hematocrit 44.1 % (40-54); Hemoglobin 14.8 g/dL (13.0-16.5); Lymphocyte # 1.52 X10^3/ul (0.83-4.51); Lymphocyte % 23.4 % (19-41); Mean Corp Hgb Conc 33.6 g/dL (32-36); Mean Corpuscular Hgb 29.7 pg (27.0-32.0); Mean Corpuscular Volume 88.4 fL (80-94); Mean Platelet Vol. 9.5 fl (6.2-12.0); Monocyte# 0.58 X10^3/uL; Monocyte% 8.9 % (0-10); NRBC Flagged by Analyzer 0 % (0-5); Neutrophil % 63.1 % (47-70); Platelet Count 250 K/mm3 (150-450); RBC Distribution Width CV 12.7 % (11.6-14.6); Red Blood Count 4.99 M/mm3 (4.6-6.2); White Blood Count 6.5 K/mm3 (4.4-11.0)
[2022-10-14 09:13] LABS: Hemoglobin A1c 5.5 % (3.8-5.6)
[2022-10-14 09:31] LABS: AST(SGOT) 19 U/L (15-37); Alanine Aminotransfer ALT/SGPT 27 U/L (16-61); Albumin, Serum 3.4 g/dL (3.2-5.0); Alkaline Phosphatase 75 U/L (45-117); Anion Gap 4 (5-15); BUN 20 mg/dL (7-18); CRP, High Sensitivity Cardiac 0.56 mg/L; Calcium,Total 8.6 mg/dL (8.5-10.1); Chloride 113 mmol/L (98-107); Cholesterol 151 mg/dL (200); Creatinine, Serum 1.05 mg/dL (0.70-1.30); EST Glomerular Filtration Rate 74 mL/min (>60); Est Glom Filt Rate - Afr Amer 90 mL/min (>60); Ferritin 105 ng/mL (26-388); GGTP 11 U/L (15-85); Globulin 3.3 g/dL (2.2-4.2); Glucose 99 mg/dL (74-106); High Density Lipoprotein 60 mg/dL; Iron 134 ug/dL (65-175); Iron Binding Capacity,Total 315 ug/dL (250-450); LDH 171 U/L (87-241); Potassium 4.1 mmol/L (3.5-5.1); Protein, Total 6.7 g/dL (6.4-8.2); Sodium Level 141 mmol/L (136-145); T3 Uptake 36 % (33-40); T4 Total, Thyroxin 7.4 ug/dL (4.5-12.1); T7 / Free Thyroxin Index 2.7 (1.4-4.5); Thyroid Stim Hormone (TSH) 1.73 uIU/mL (0.358-3.74); Triglycerides 61 mg/dL; Uric Acid 4.4 mg/dL (3.5-7.2); Very Low Density Lipoprotein 12 mg/dL (5-40)
[2022-10-14 10:10] LABS: Erythrocyte Sedimentation Rate 3 mm/hr (0-20)
[2022-10-14 10:13] LABS: Insulin 7.7 mU/L (2.6-37.6)
== END 2022-10-14 23:59 | disposition home or self-care (01) ==
PROVIDERS: PCP Family Medicine Geriatric Medicine
DX: Z13.220 Encounter for screening for lipoid disorders (principal); R56.9 Unspecified convulsions; R53.83 Other fatigue; Z13.29 Encounter for screening for other suspected endocrine disorder; E56.9 Vitamin deficiency, unspecified; E61.9 Deficiency of nutrient element, unspecified; E78.00 Pure hypercholesterolemia, unspecified; R05.3 Chronic cough
CPT/HCPCS: 36415; 80053; 80061; 82306; 82390; 82525; 82533; 82728; 82977; 83003; 83036; 83090; 83525; 83540; 83550; 83615; 83625; 84075; 84080; 84436; 84443; 84479; 84481; 84482; 84550; 85025; 85652; 86141; 86376; 86800

== ENCOUNTER → 2022-12-12 | Outpatient (CLI) | payer MEDICARE, OTHER, SELFPAY ==
[2022-12-12 10:07] LABS: Ammonia < 10.0 umol/L (11-32)
[2022-12-14 15:32] LABS: KEPPRA (LEVETIRACETAM) 9.2 ug/mL (10.0-40.0)
== END | disposition home or self-care (01) ==
LOC: MTLAB 09:17
PROVIDERS: PCP Family Medicine Geriatric Medicine; Referring Provider Psychiatry & Neurology Neurology; Visit Provider Psychiatry & Neurology Neurology
DX: G40.909 Epilepsy, unspecified, not intractable, without status epilepticus (principal)
CPT/HCPCS: 36415; 80177; 82140

== ENCOUNTER → 2023-01-25 | Outpatient (CLI) | payer MEDICARE, OTHER, SELFPAY ==
[2023-01-25 10:09] LABS: Absolute Lymphocyte Count 1.67 X10^3/uL (0.83-4.51); Absolute Neutrophil Count 3.3 X10^3/uL (2.0-7.7); Basophil# 0.07 X10^3/uL; Basophil% 1.2 % (0-1); Eosinophil# 0.24 X10^3/uL; Eosinophils% 4.1 % (0-5); Hemoglobin 15.6 g/dL (13.0-16.5); Lymphocyte # 1.67 X10^3/ul (0.83-4.51); Lymphocyte % 28.4 % (19-41); Mean Corp Hgb Conc 32.5 g/dL (32-36); Mean Corpuscular Hgb 29.4 pg (27.0-32.0); Mean Corpuscular Volume 90.4 fL (80-94); Mean Platelet Vol. 9.5 fl (6.2-12.0); Monocyte# 0.57 X10^3/uL; Monocyte% 9.7 % (0-10); NRBC Flagged by Analyzer 0 % (0-5); Neutrophil # 3.32 X10^3/uL (2.7-7.7); Neutrophil % 56.3 % (47-70); Platelet Count 305 K/mm3 (150-450); RBC Distribution Width CV 12.8 % (11.6-14.6); RBC Distribution Width SD 42.6 fl (35.1-43.9); Red Blood Count 5.31 M/mm3 (4.6-6.2); White Blood Count 5.9 K/mm3 (4.4-11.0)
[2023-01-25 10:11] LABS: Erythrocyte Sedimentation Rate 2 mm/hr (0-20)
[2023-01-25 10:34] LABS: Fibrinogen 259 mg/dl (203-444)
[2023-01-25 10:35] LABS: Insulin 9.9 mU/L (2.6-37.6); Vitamin D,25 Hydroxy 70.4 ng/mL
[2023-01-25 10:55] LABS: ALB/GLOB Ratio 0.9 RATIO (0.9-2.4); AST(SGOT) 22 U/L (15-37); Alanine Aminotransfer ALT/SGPT 31 U/L (16-61); Albumin, Serum 3.5 g/dL (3.2-5.0); Alkaline Phosphatase 75 U/L (45-117); Anion Gap 4 (5-15); BUN 21 mg/dL (7-18); BUN/Creat Ratio 15.9 RATIO (10-20); CRP, High Sensitivity Cardiac 1.07 mg/L; Calcium,Total 9.1 mg/dL (8.5-10.1); Chloride 110 mmol/L (98-107); Cholesterol 248 mg/dL (200); Creatinine, Serum 1.32 mg/dL (0.70-1.30); EST Glomerular Filtration Rate 57 mL/min (>60); Est Glom Filt Rate - Afr Amer 69 mL/min (>60); Ferritin 98 ng/mL (26-388); Free T3 2.4 pg/mL (2.18-3.98); GGTP 22 U/L (15-85); Glucose 105 mg/dL (74-106); High Density Lipoprotein 62 mg/dL; LDH 196 U/L (87-241); Potassium 3.8 mmol/L (3.5-5.1); Protein, Total 7.5 g/dL (6.4-8.2); Sodium Level 139 mmol/L (136-145); T3 Uptake 35 % (33-40); T4 Total, Thyroxin 9.4 ug/dL (4.5-12.1); T7 / Free Thyroxin Index 3.3 (1.4-4.5); Thyroid Stim Hormone (TSH) 2.05 uIU/mL (0.358-3.74); Triglycerides 82 mg/dL; Very Low Density Lipoprotein 16 mg/dL (5-40)
[2023-01-25 11:10] LABS: Homocysteine 5.9 umol/L (3.2-10.7)
[2023-02-06 02:07] LABS: Ceruloplasmin 25.9 mg/dL (16.0-31.0); Copper, Serum or Plasma 101 ug/dL (69-132); Insulin Like Growth Factor 123 ng/mL (53-222); T3 Reverse 10.1 ng/dL (9.2-24.1)
== END | disposition home or self-care (01) ==
PROVIDERS: PCP Family Medicine Geriatric Medicine
DX: R53.83 Other fatigue (principal); R56.9 Unspecified convulsions; E56.9 Vitamin deficiency, unspecified; E61.9 Deficiency of nutrient element, unspecified; E78.00 Pure hypercholesterolemia, unspecified; R05.3 Chronic cough; R89.1 Abnormal level of hormones in specimens from other organs, systems and tissues; K59.00 Constipation, unspecified
CPT/HCPCS: 36415; 80053; 80061; 82306; 82390; 82525; 82728; 82977; 83090; 83525; 83615; 84305; 84436; 84439; 84443; 84479; 84481; 84482; 85025; 85384; 85652; 86141

== ENCOUNTER → 2023-02-28 | Outpatient (CLI) | payer MEDICARE, OTHER, SELFPAY ==
[2023-02-28 11:12] LABS: Color, Urine Yellow (Yellow); Glucose, Dipstick Normal (Normal); Ketone-Dipstick Negative (Negative); Leukocyte Esterase-Dipstick Negative /ul (Negative); Nitrite-Dipstick Negative (Negative); Occult Blood-Urine Negative /ul (Negative); Protein-Dipstick Negative (Negative); Specific Gravity, Urine 1.015 (1.002-1.030); Urine Bilirubin Dipstick Negative (Negative); Urine Clarity Clear (Clear); Urine Urobilinogen Normal (Normal); Urine pH 6.5 (5.0 - 8.0)
[2023-02-28 11:43] LABS: ALB/GLOB Ratio 1.1 RATIO (0.9-2.4); AST(SGOT) 24 U/L (15-37); Alanine Aminotransfer ALT/SGPT 24 U/L (16-61); Albumin, Serum 3.3 g/dL (3.2-5.0); Alkaline Phosphatase 75 U/L (45-117); Anion Gap 6 (5-15); BUN 26 mg/dL (7-18); BUN/Creat Ratio 22.4 RATIO (10-20); Calcium,Total 8.6 mg/dL (8.5-10.1); Chloride 113 mmol/L (98-107); Creatinine, Serum 1.16 mg/dL (0.70-1.30); EST Glomerular Filtration Rate 66 mL/min (>60); Est Glom Filt Rate - Afr Amer 80 mL/min (>60); Globulin 3.1 g/dL (2.2-4.2); Glucose 97 mg/dL (74-106); Potassium 4.1 mmol/L (3.5-5.1); Protein, Total 6.4 g/dL (6.4-8.2); Sodium Level 143 mmol/L (136-145)
== END | disposition home or self-care (01) ==
PROVIDERS: PCP Family Medicine Geriatric Medicine
DX: N19 Unspecified kidney failure (principal); R56.9 Unspecified convulsions; E56.9 Vitamin deficiency, unspecified; E61.9 Deficiency of nutrient element, unspecified; R89.1 Abnormal level of hormones in specimens from other organs, systems and tissues
CPT/HCPCS: 80053; 81002

== ENCOUNTER 2023-07-18 07:11 | Outpatient (CLI) | payer MEDICARE, OTHER, SELFPAY ==
[2023-07-18 10:21] LABS: Absolute Lymphocyte Count 1.97 X10^3/uL (0.83-4.51); Absolute Neutrophil Count 3.1 X10^3/uL (2.0-7.7); Basophil# 0.06 X10^3/uL; Eosinophil# 0.23 X10^3/uL; Eosinophils% 3.9 % (0-5); Hematocrit 45.4 % (40-54); Lymphocyte # 1.97 X10^3/ul (0.83-4.51); Lymphocyte % 33.1 % (19-41); Mean Corpuscular Hgb 29.4 pg (27.0-32.0); Mean Corpuscular Volume 88.8 fL (80-94); Mean Platelet Vol. 9.2 fl (6.2-12.0); Monocyte# 0.53 X10^3/uL; Monocyte% 8.9 % (0-10); NRBC Flagged by Analyzer 0 % (0-5); Neutrophil # 3.14 X10^3/uL (2.7-7.7); Neutrophil % 52.8 % (47-70); Platelet Count 272 K/mm3 (150-450); RBC Distribution Width CV 12.6 % (11.6-14.6); RBC Distribution Width SD 41.3 fl (35.1-43.9); Red Blood Count 5.11 M/mm3 (4.6-6.2)
[2023-07-18 10:30] LABS: Erythrocyte Sedimentation Rate 2 mm/hr (0-20)
[2023-07-18 10:43] LABS: Fibrinogen 255 mg/dl (203-444)
[2023-07-18 10:46] LABS: Insulin 4.9 mU/L (2.6-37.6); Vitamin D,25 Hydroxy 87.2 ng/mL
[2023-07-18 10:54] LABS: Color, Urine Yellow (Yellow); Glucose, Dipstick Normal (Normal); Ketone-Dipstick Negative (Negative); Leukocyte Esterase-Dipstick Negative /ul (Negative); Nitrite-Dipstick Negative (Negative); Occult Blood-Urine Negative /ul (Negative); Protein-Dipstick Negative (Negative); Urine Bilirubin Dipstick Negative (Negative); Urine Clarity Clear (Clear); Urine Urobilinogen Normal (Normal)
[2023-07-18 11:01] LABS: Homocysteine 6.5 umol/L (3.2-10.7)
[2023-07-18 11:19] LABS: ALB/GLOB Ratio 0.8 RATIO (0.9-2.4); AST(SGOT) 12 U/L (15-37); Alanine Aminotransfer ALT/SGPT 27 U/L (16-61); Albumin, Serum 3.2 g/dL (3.2-5.0); Alkaline Phosphatase 70 U/L (45-117); Anion Gap 4 (5-15); BUN 22 mg/dL (7-18); BUN/Creat Ratio 17.1 RATIO (10-20); CRP, High Sensitivity Cardiac 0.64 mg/L; Calcium,Total 8.8 mg/dL (8.5-10.1); Chloride 112 mmol/L (98-107); Cholesterol 226 mg/dL (200); Creatinine, Serum 1.29 mg/dL (0.70-1.30); EST Glomerular Filtration Rate 58 mL/min (>60); Est Glom Filt Rate - Afr Amer 71 mL/min (>60); Ferritin 97 ng/mL (26-388); Free T3 2.4 pg/mL (2.18-3.98); GGTP 15 U/L (15-85); Globulin 3.8 g/dL (2.2-4.2); Glucose 101 mg/dL (74-106); High Density Lipoprotein 63 mg/dL; LDH 161 U/L (87-241); Sodium Level 141 mmol/L (136-145); T3 Uptake 37 % (33-40); T4 Free Direct 0.92 ng/dL (0.76-1.46); T4 Total, Thyroxin 6.9 ug/dL (4.5-12.1); T7 / Free Thyroxin Index 2.6 (1.4-4.5); Thyroid Stim Hormone (TSH) 1.75 uIU/mL (0.358-3.74); Triglycerides 68 mg/dL; Very Low Density Lipoprotein 14 mg/dL (5-40)
[2023-07-18 17:43] LABS: Hemoglobin A1c 5.4 % (3.8-5.6)
[2023-07-27 09:08] LABS: Ceruloplasmin 23.1 mg/dL (16.0-31.0); Copper, Serum or Plasma 93 ug/dL (69-132); Insulin Like Growth Factor 102 ng/mL (53-222); PSA, Free 0.23 ng/mL; PSA, Free % 21.3 % (.); T3 Reverse 13.7 ng/dL (9.2-24.1)
== END 2023-07-18 23:59 | disposition home or self-care (01) ==
PROVIDERS: PCP Family Medicine Geriatric Medicine
DX: N19 Unspecified kidney failure (principal); R56.9 Unspecified convulsions; R53.83 Other fatigue; Z13.29 Encounter for screening for other suspected endocrine disorder; Z13.220 Encounter for screening for lipoid disorders; E56.9 Vitamin deficiency, unspecified; E61.9 Deficiency of nutrient element, unspecified; R89.1 Abnormal level of hormones in specimens from other organs, systems and tissues; K59.00 Constipation, unspecified; E78.00 Pure hypercholesterolemia, unspecified; R05.3 Chronic cough
CPT/HCPCS: 36415; 80053; 80061; 81002; 82306; 82390; 82525; 82728; 82977; 83036; 83090; 83525; 83615; 84153; 84154; 84305; 84436; 84439; 84443; 84479; 84481; 84482; 84550; 85025; 85384; 85652; 86141

== ENCOUNTER 2023-09-20 07:10 | Outpatient (CLI) | payer MEDICARE, OTHER, SELFPAY ==
--- OUTSIDE RECORDS SUMMARY | 2023-09-20 07:19 | XMS RPT_ITS ---
Author Name Auto Generated Organization [facility] Care Team Providers Care Defensive Driving Instructor Name Role Phone UNKNOWN, PCP Primary Care Unavailable Dr. Osvaldo More Referring Unavail able Dr. Osvaldo More Attending Unavail able PROBLEMS No Problem Records Found PROCEDURES No Procedure Records Found RESULTS No Result Records Found ALLERGIES No Allergies Records Found ENCOUNTERS ADMIT/DISCHARGE ACCOUNT NUMBER ADMITTING ENCOUNTER CLASS LOC ATION SOURCE 10/05/2022 [id number] Ambulatory [id number]:U nknown [facility] PAYERS ENCOUNTER GUARANTOR PAYER SUBSCRIBER SOURCE 10/05/2022 MARY ROLDAN: [id number] [place], [place] [address]Yru: (HP) Primary Insurance:Self Pay Pre Paid ServicesPolicy Number: [id number] Date:Plan Name:Health MARY ROLDAN: [id number] [place], [place] [address]: (HP) [facility]
[2023-09-20 10:37] LABS: Erythrocyte Sedimentation Rate 3 mm/hr (0-20)
[2023-09-20 10:43] LABS: Absolute Lymphocyte Count 1.84 X10^3/uL (0.83-4.51); Absolute Neutrophil Count 3.3 X10^3/uL (2.0-7.7); Basophil# 0.06 X10^3/uL; Eosinophil# 0.22 X10^3/uL; Eosinophils% 3.7 % (0-5); Hematocrit 45.3 % (40-54); Hemoglobin 15.5 g/dL (13.0-16.5); Lymphocyte # 1.84 X10^3/ul (0.83-4.51); Lymphocyte % 30.8 % (19-41); Mean Corp Hgb Conc 34.2 g/dL (32-36); Mean Corpuscular Volume 87.6 fL (80-94); Mean Platelet Vol. 9.3 fl (6.2-12.0); NRBC Flagged by Analyzer 0 % (0-5); Neutrophil # 3.25 X10^3/uL (2.7-7.7); Neutrophil % 54.3 % (47-70); Platelet Count 279 K/mm3 (150-450); RBC Distribution Width CV 12.6 % (11.6-14.6); RBC Distribution Width SD 40.7 fl (35.1-43.9); Red Blood Count 5.17 M/mm3 (4.6-6.2)
[2023-09-20 11:03] LABS: AST(SGOT) 16 U/L (15-37); Alanine Aminotransfer ALT/SGPT 23 U/L (16-61); Albumin, Serum 3.3 g/dL (3.2-5.0); Alkaline Phosphatase 74 U/L (45-117); Anion Gap 5 (5-15); BUN 26 mg/dL (7-18); Calcium,Total 8.3 mg/dL (8.5-10.1); Chloride 114 mmol/L (98-107); Creatinine, Serum 1.13 mg/dL (0.70-1.30); EST Glomerular Filtration Rate 68 mL/min (>60); Est Glom Filt Rate - Afr Amer 82 mL/min (>60); Ferritin 79 ng/mL (26-388); Globulin 3.3 g/dL (2.2-4.2); Glucose 99 mg/dL (74-106); LDH 198 U/L (87-241); Potassium 4.1 mmol/L (3.5-5.1); Protein, Total 6.6 g/dL (6.4-8.2); Sodium Level 143 mmol/L (136-145)
[2023-09-28 09:08] LABS: LDH 162 IU/L (121-224); LDH Fraction 1 17 % (17-32); LDH Fraction 2 36 % (25-40); LDH Fraction 3 25 % (17-27); LDH Fraction 4 11 % (5-13); LDH Fraction 5 11 % (4-20)
== END 2023-09-20 23:59 | disposition home or self-care (01) ==
PROVIDERS: PCP Family Medicine Geriatric Medicine; Referring Provider Naturopath; Visit Provider Naturopath
DX: R56.9 Unspecified convulsions (principal); R89.1 Abnormal level of hormones in specimens from other organs, systems and tissues; N19 Unspecified kidney failure
CPT/HCPCS: 36415; 80053; 82728; 83615; 83625; 85025; 85652; 86141

== ENCOUNTER → 2023-12-04 | Outpatient (CLI) | payer MEDICARE, OTHER, SELFPAY ==
[2023-12-07 12:09] LABS: KEPPRA (LEVETIRACETAM) 10.7 ug/mL (10.0-40.0)
== END | disposition home or self-care (01) ==
LOC: MTLAB 07:12
PROVIDERS: PCP Family Medicine Geriatric Medicine; Referring Provider Psychiatry & Neurology Neurology; Visit Provider Psychiatry & Neurology Neurology
DX: G40.909 Epilepsy, unspecified, not intractable, without status epilepticus (principal)
CPT/HCPCS: 36415; 80177; 82140

== ENCOUNTER 2024-02-15 07:01 | Outpatient (CLI) | payer MEDICARE, OTHER, SELFPAY ==
[2024-02-15 11:14] LABS: Absolute Lymphocyte Count 1.56 X10^3/uL (0.83-4.51); Absolute Neutrophil Count 3.2 X10^3/uL (2.0-7.7); Basophil# 0.06 X10^3/uL; Eosinophil# 0.35 X10^3/uL; Hematocrit 45.7 % (40-54); Hemoglobin 15.3 g/dL (13.0-16.5); Lymphocyte # 1.56 X10^3/ul (0.83-4.51); Lymphocyte % 26.9 % (19-41); Mean Corp Hgb Conc 33.5 g/dL (32-36); Mean Corpuscular Hgb 29.3 pg (27.0-32.0); Mean Corpuscular Volume 87.4 fL (80-94); Mean Platelet Vol. 9.6 fl (6.2-12.0); Monocyte# 0.61 X10^3/uL; Monocyte% 10.5 % (0-10); NRBC Flagged by Analyzer 0 % (0-5); Neutrophil % 55.4 % (47-70); Platelet Count 287 K/mm3 (150-450); RBC Distribution Width CV 12.9 % (11.6-14.6); RBC Distribution Width SD 41.1 fl (35.1-43.9); Red Blood Count 5.23 M/mm3 (4.6-6.2); White Blood Count 5.8 K/mm3 (4.4-11.0)
[2024-02-15 11:18] LABS: Vitamin D,25 Hydroxy 85.3 ng/mL
[2024-02-15 11:24] LABS: Hemoglobin A1c 5.2 % (3.8-5.6)
[2024-02-15 11:57] LABS: AST(SGOT) 19 U/L (15-37); Alanine Aminotransfer ALT/SGPT 25 U/L (16-61); Albumin, Serum 3.4 g/dL (3.2-5.0); Alkaline Phosphatase 72 U/L (45-117); Anion Gap 6 (5-15); BUN 22 mg/dL (7-18); BUN/Creat Ratio 17.6 RATIO (10-20); CRP, High Sensitivity Cardiac 0.46 mg/L; Calcium,Total 8.9 mg/dL (8.5-10.1); Chloride 112 mmol/L (98-107); Creatinine, Serum 1.25 mg/dL (0.70-1.30); EST Glomerular Filtration Rate 60 mL/min (>60); Est Glom Filt Rate - Afr Amer 73 mL/min (>60); Ferritin 57 ng/mL (26-388); Free T3 2.1 pg/mL (2.18-3.98); Globulin 3.5 g/dL (2.2-4.2); Glucose 109 mg/dL (74-106); LDH 196 U/L (87-241); Protein, Total 6.9 g/dL (6.4-8.2); Sodium Level 140 mmol/L (136-145); T3 Uptake 37 % (33-40); T4 Free Direct 0.86 ng/dL (0.76-1.46); T4 Total, Thyroxin 6.7 ug/dL (4.5-12.1); T7 / Free Thyroxin Index 2.5 (1.4-4.5); Thyroid Stim Hormone (TSH) 1.54 uIU/mL (0.358-3.74); Uric Acid 4.8 mg/dL (3.5-7.2)
[2024-02-15 14:59] LABS: Erythrocyte Sedimentation Rate 5 mm/hr (0-20)
[2024-02-21 12:10] LABS: Copper, Serum or Plasma 123 ug/dL (69-132); T3 Reverse 14.5 ng/dL (9.2-24.1); Thyroglobulin Antibody < 1.0 IU/mL (0.0-0.9); Thyroid Peroxidase AB < 9 IU/mL (0-34)
== END 2024-02-15 23:59 | disposition home or self-care (01) ==
PROVIDERS: PCP Family Medicine Geriatric Medicine; Referring Provider Naturopath; Visit Provider Naturopath
DX: R56.9 Unspecified convulsions (principal); R89.1 Abnormal level of hormones in specimens from other organs, systems and tissues; N19 Unspecified kidney failure; E56.9 Vitamin deficiency, unspecified; R77.9 Abnormality of plasma protein, unspecified; E83.51 Hypocalcemia
CPT/HCPCS: 36415; 80053; 82306; 82525; 82728; 83036; 83615; 84436; 84439; 84443; 84479; 84481; 84482; 84550; 85025; 85652; 86141; 86376; 86800

== ENCOUNTER 2024-07-31 07:04 | Outpatient (CLI) | payer MEDICARE, OTHER, SELFPAY ==
[2024-07-31 10:22] LABS: Absolute Neutrophil Count 4.5 X10^3/uL (2.0-7.7); Basophil# 0.09 X10^3/uL; Basophil% 1.2 % (0-1); Eosinophil# 0.23 X10^3/uL; Eosinophils% 3.1 % (0-5); Hematocrit 46.7 % (40-54); Hemoglobin 15.8 g/dL (13.0-16.5); Lymphocyte % 24.6 % (19-41); Mean Corp Hgb Conc 33.8 g/dL (32-36); Mean Corpuscular Hgb 29.6 pg (27.0-32.0); Mean Corpuscular Volume 87.5 fL (80-94); Mean Platelet Vol. 9.4 fl (6.2-12.0); Monocyte# 0.67 X10^3/uL; Monocyte% 9.2 % (0-10); NRBC Flagged by Analyzer 0 % (0-5); Neutrophil # 4.48 X10^3/uL (2.7-7.7); Neutrophil % 61.4 % (47-70); Platelet Count 283 K/mm3 (150-450); RBC Distribution Width CV 12.6 % (11.6-14.6); RBC Distribution Width SD 39.9 fl (35.1-43.9); Red Blood Count 5.34 M/mm3 (4.6-6.2); White Blood Count 7.3 K/mm3 (4.4-11.0)
[2024-07-31 10:38] LABS: Hemoglobin A1c 5.6 % (3.8-5.6)
[2024-07-31 10:44] LABS: T3 Total - Triiodothyronine 1.18 ng/mL (0.6-1.81)
[2024-07-31 10:48] LABS: Erythrocyte Sedimentation Rate 4 mm/hr (0-20); Fibrinogen 267 mg/dl (203-444)
[2024-07-31 10:57] LABS: AST(SGOT) 17 U/L (15-37); Alanine Aminotransfer ALT/SGPT 26 U/L (16-61); Albumin, Serum 3.5 g/dL (3.2-5.0); Alkaline Phosphatase 73 U/L (45-117); Anion Gap 5 (5-15); BUN 24 mg/dL (7-18); BUN/Creat Ratio 19.2 RATIO (10-20); Calcium,Total 9.2 mg/dL (8.5-10.1); Chloride 111 mmol/L (98-107); Cholesterol 249 mg/dL (200); Creatinine, Serum 1.25 mg/dL (0.70-1.30); EST Glomerular Filtration Rate 60 mL/min (>60); Est Glom Filt Rate - Afr Amer 73 mL/min (>60); Ferritin 82 ng/mL (26-388); Free T3 2.6 pg/mL (2.18-3.98); Globulin 3.5 g/dL (2.2-4.2); Glucose 105 mg/dL (74-106); High Density Lipoprotein 72 mg/dL; LDH 193 U/L (87-241); Sodium Level 140 mmol/L (136-145); T4 Free Direct 0.87 ng/dL (0.76-1.46); T4 Total, Thyroxin 7.6 ug/dL (4.5-12.1); Triglycerides 86 mg/dL; Uric Acid 4.9 mg/dL (3.5-7.2); Very Low Density Lipoprotein 17 mg/dL (5-40)
[2024-08-01 12:10] LABS: CRP, High Sensitivity 0.41 mg/L (0.00-3.00); HOMOCYSTEINE 10.3 umol/L (0.0-19.2)
[2024-08-05 15:08] LABS: Copper, Serum or Plasma 95 ug/dL (69-132); GGTP 13 IU/L (0-65); Insulin Level 5.3 uIU/mL (2.6-24.9); Insulin Like Growth Factor 102 ng/mL (53-222); T3 Reverse 11.6 ng/dL (9.2-24.1); T3UP 29 % (24-39)
== END 2024-07-31 23:59 | disposition home or self-care (01) ==
PROVIDERS: PCP Family Medicine Geriatric Medicine; Referring Provider Naturopath; Visit Provider Naturopath
DX: R56.9 Unspecified convulsions (principal); R89.1 Abnormal level of hormones in specimens from other organs, systems and tissues; N19 Unspecified kidney failure; E56.9 Vitamin deficiency, unspecified; R77.9 Abnormality of plasma protein, unspecified; B35.3 Tinea pedis; E83.51 Hypocalcemia; K59.00 Constipation, unspecified; E78.00 Pure hypercholesterolemia, unspecified; R53.83 Other fatigue; R05.3 Chronic cough; Z13.29 Encounter for screening for other suspected endocrine disorder; Z13.220 Encounter for screening for lipoid disorders
CPT/HCPCS: 36415; 80053; 80061; 82525; 82728; 82977; 83036; 83090; 83525; 83615; 84305; 84436; 84439; 84443; 84479; 84480; 84481; 84482; 84550; 85025; 85384; 85652; 86141

== ENCOUNTER → 2024-08-13 | Outpatient (CLI) | payer MEDICARE, OTHER, SELFPAY ==
--- NOTE | 2024-08-13 07:54 | US_ITS ---
INDICATION: Hx smoking EXAMINATION: Ultrasound US Abdomen Limited (quadrant) TECHNIQUE: Bennett scale and color doppler imaging was performed of the right upper quadrant. COMPARISON: No relevant prior comparison study available FINDINGS: LIVER: There is normal echotexture. No focal hepatic lesion. There is no free fluid. GALLBLADDER AND BILIARY TREE: No shadowing gallstone, pericholecystic fluid or gallbladder wall thickening is demonstrated. The proximal common bile duct measures 8.4 mm. Songraphic Quijano''s sign: Negative. PANCREAS: No focal abnormality is demonstrated in the pancreas. No pancreatic ductal dilatation. The right kidney measures 10.9 cm in length and is within normal limits. US/Abdomen Limited IMPRESSION: Mildly dilated common bile duct measuring up to 8.4 mm, consider MRCP for further characterization. Electronically Signed: Fanny Escamilla MD at 8:10 EST ,
== END | disposition home or self-care (01) ==
LOC: US 07:54
PROVIDERS: PCP Family Medicine Geriatric Medicine; Referring Provider Family Medicine; Visit Provider Family Medicine
DX: Z87.891 Personal history of nicotine dependence (principal)
CPT/HCPCS: 76705

== ENCOUNTER → 2024-09-15 | Outpatient (CLI) | payer MEDICARE, OTHER, SELFPAY ==
--- NOTE | 2024-09-15 13:22 | MRI_ITS ---
EXAM: MR ABDOMEN WITHOUT INTRAVENOUS CONTRAST, MRCP PROTOCOL CLINICAL INDICATION: DILATED CBD TECHNIQUE: Multiplanar and multisequence MR images of the abdomen without intravenous contrast obtained with MRCP sequence. Three-dimensional post-processing reconstructions were performed. COMPARISON: No relevant prior studies available. FINDINGS: LOWER THORAX: Normal. No pleural effusion. LIVER: Normal. Normal morphology. GALLBLADDER AND BILE DUCTS: Common bile duct measures 5 mm in maximum diameter. No evidence of common bile duct stone. Gallbladder has normal appearance. No gallbladder distention or wall edema. PANCREAS: Normal. No focal cystic mass. No pancreatic duct dilation. SPLEEN: Normal. Non-enlarged. ADRENALS: Normal. No nodules. KIDNEYS AND URETERS: 15 mm left renal cyst. No further follow-up indicated. Normal renal size and position. No hydronephrosis. INTRAPERITONEAL SPACE: Normal. No ascites or other fluid collection. VASCULATURE: Normal. Abdominal aorta is non-dilated. LYMPH NODES: No enlarged lymph nodes. MRI/MRCP Abdomen without Contrast IMPRESSION: Normal gallbladder and biliary tree. Electronically Signed: Jacky Christensen MD at 15:59 EST ,
== END | disposition home or self-care (01) ==
LOC: MRI 13:10
PROVIDERS: PCP Family Medicine; Referring Provider Family Medicine; Visit Provider Family Medicine
DX: K83.8 Other specified diseases of biliary tract (principal)
CPT/HCPCS: 74181

== ENCOUNTER 2024-10-14 07:10 | Day surgery (SDC) | payer MEDICARE, OTHER, SELFPAY ==
[2024-10-14] VITALS (7 sets, daily range): BP systolic 117–144; BP diastolic 60–91; PULSE 48–65; RESP 16; TEMP 36.1–36.5; O2SAT 100; BMI 26.6
--- NOTE | 2024-10-14 07:48 | PRE.ANES_ITS ---
ASA Classification* ASA Classification ASA Classification: 2 Assessment & Plan Anesthesia* Anesthesia Assessment Anesthesia Assessment: Discussed sedation and/or anesthesia options, risks, benefits, and alternatives with patient/parents/legal guardian/POA. Questions invited. The patient/parents/legal guardian/POA seems to understand and agrees to proceed with anesthesia plan. Reviewed the physical assessment, medical history, allergy history and patient home medications list prior to surgery/procedure/anesthetic and documented any changes. Performed airway and anesthesia risk assessments. Anesthesia Type Anesthesia Type: MAC History Source History Obtained from:: Patient and Chart Anesthesia Focused Assessment* Temperature: 97.7 F Pulse Rate: 51 Blood Pressure: 144/91 Respiratory Rate: 16 Pulse Ox: 100 Oxygen Delivery Method: Room Air Airway Assessment Mouth opens: >3 cm Mallampati Score: III Teeth Condition: Missing (Patient has 1 missing molar right upper. Rest of the teeth are tight.) Neck Range of motion (ROM): Full ROM Focused Labs Anesthesia Preop lab: CBC WBC 7.3 K/mm3 (4.4-11.0) 07/31/24 07:11 RBC 5.34 M/mm3 (4.6-6.2) 07/31/24 07:11 Hgb 15.8 g/dL (13.0-16.5) 07/31/24 07:11 Hct 46.7 % (40-54) 07/31/24 07:11 Plt Count 283 K/mm3 (150-450) 07/31/24 07:11 CHEMISTRY Potassium 4.0 mmol/L (3.5-5.1) 07/31/24 07:11 Sodium 140 mmol/L (136-145) 07/31/24 07:11 Magnesium 2.2 mg/dL (1.6-2.6) 01/03/22 03:47 BUN 24 mg/dL (7-18) H 07/31/24 07:11 Creatinine 1.25 mg/dL (0.70-1.30) 07/31/24 07:11 Glucose 105 mg/dL (74-106) 07/31/24 07:11 TSH 2.050 uIU/mL (0.358-3.740) 07/31/24 07:11 COAG Pre-Assessment Diagnosis/Proposed Procedure Planned Operative Procedure(s): COLONOSCOPY Anesthesia History Anesthesia History - visual merchandising associate: Anesthesia History - visual merchandising associate Hx Hospitalization No 10/10/24 14:33 Any Problems With Anesthesia No 10/10/24 14:33 Cholinesterase deficiency No 10/10/24 14:33 You/Your Family Experience No 10/10/24 14:33 fever (hyperthermia) with Relationship Recent Exposure to Contagious No 10/14/24 07:33 Disease Does patient have nerve No 10/10/24 14:33 stimulator Patient instructed to have device shut off --Does patient have Pacemaker No 10/14/24 07:33 or ICD? When Was Last Pacemaker Check QUESTION #4 FULL TEXT: You/Your Family Experience fever (hyperthermia) with Anesthesia Last Oral Intake Last Oral intake: Last Oral Intake NPO since 23:00 10/14/24 07:33 Meds taken in AM with sips of water? Meds patient instructed to take am of surgery PONV PONV - visual merchandising associate: PONV - visual merchandising associate Female No 10/10/24 14:33 HX of Motion Sickness No 10/10/24 14:33 HX of N/V After Surgery No 10/10/24 14:33 Non-Smoker Yes 10/10/24 14:33 Duration of Surgery greater No 10/10/24 14:33 than 60 minutes Number of Risk Factors 1 10/10/24 14:33 PONV Score Low Risk 10/10/24 14:33 Height & Weight Height & Weight: Anesthesia: Height & Weight Height 5 ft 7 in 10/14/24 07:33 Weight: 77 kg 10/14/24 07:33 Body Mass Index (BMI) 26.6 10/14/24 07:33 Respiratory Assessment Respiratory Assessment - visual merchandising associate: Respiratory Tract Infection Hx - visual merchandising associate Hx Respiratory Tract Infection No 10/10/24 14:33 STOP Sleep Apnea STOP Sleep Apnea - visual merchandising associate: STOP Sleep Apnea - visual merchandising associate Hx Hypertension No 10/10/24 14:33 Hx Sleep Apnea No 10/10/24 14:33 CPAP BIPAP Do you snore loudly (louder Yes 10/10/24 14:33 than talking or can be heard Do you often feel tired/ No 10/10/24 14:33 fatigued/ sleepy during daytime? Has anyone observed you stop No 10/10/24 14:33 breathing during sleep? STOP Results Negative 10/10/24 14:33 QUESTION #5 FULL TEXT : Do you snore loudly (louder than talking or can be heard through closed doors)? Tobacco Use History Tobacco Use History - visual merchandising associate: Tobacco Use History - visual merchandising associate Tobacco Use Smoking Status Never smoker 10/10/24 14:33 Hx Tobacco Use No 10/10/24 14:33 Years Smoking Packs Smoked per Day Smoking Cessation Date was within the last 15 years Hx Smoking Cessation Date Hx Smoking Cessation Counseling Hematologic Medial History Hematologic Hx - visual merchandising associate: Hematologic Medical Hx - clinical investigator Hx of Blood Transfusion No 10/10/24 14:33 Hx of Transfusion in last 3 No 10/10/24 14:33 Months Date of Last Transfusion (if within last 3 months) Ever experience any problems No 10/10/24 14:33 with transfusion(s)? Specify any problems Hx of Preganancy in last 3 N/A 10/10/24 14:33 Months Nurse Filling Out Transfusion [email or web address] 10/10/24 14:33 & Questions: Date: 10/10/24 10/10/24 14:33 Time: 14:37 10/10/24 14:33 Patient unable to answer at this time (ie. confused, unrespo /Reproduction History /Reproductive History - visual merchandising associate: /Reproductive Hx- visual merchandising associate Hx Now Gestational Age (in weeks): EDC: Hx Hx Para Hx Section SAB PFSH Medical History Wears hearing aid Alcohol use Back pain Seizures Non-smoker History of edema Leg cramps Landaverde's palsy Fatigue Hypercholesterolemia Home Medications ?Medication ?Instructions ?Recorded ?Last Taken ?Type Selenium Solution 236 ML 6 drp PO DAILY 12/12/22 Unknown History Zinc Citrate 30 mg PO DAILY 12/12/22 Unknown History betaine HCl 300 mg tablet 300 mg PO TIDWMEAL 12/12/22 Unknown History cholecalciferol (vitamin D3) 25 100 mcg PO TIDWMEAL 12/12/22 Unknown History mcg/drop (1,000 unit/drop) oral drops magnesium glycinate-mag oxide 240 mg PO BID 12/12/22 Unknown History medium chain triglycerides 14 15 ml PO TID 12/12/22 Unknown History gram-120 kcal/15 mL oral oil (MCT Oil) omega-3 700 mw-hjc-tyu-ala-fish 3 cap PO BID 12/12/22 10/09/24 History oil-flaxseed 320 mg-vit E capsule, vitamin K2 180 mcg capsule 180 mcg PO DAILY 12/12/22 Unknown History levetiracetam 500 mg tablet 500 mg PO BID #180 tabs 03/05/24 Unknown Rx thiamine 7 mg-vit B2 5 mg-niacin 4 1 tab PO DAILY 10/10/24 Unknown History mg-B12 25 mcg-papain 10 mg tablet (B-Complex Plus B-12) Allergy/AdvReac Type Severity Reaction Status Date / Time mussels Allergy Nausea/Vomi Verified 10/14/24 07:31 ting Family History Mother CVA (cerebral vascular accident) Hypertension Father Myocardial infarction CAD (coronary artery disease) Grandmother Osteoporosis Daughter CVA (cerebral vascular accident) Surgical History Hx of colonoscopy History of cataract surgery Social History household members: spouse current occupational status: employed Smoking Status: Never smoker Electronic Cigarette Use: not used second hand exposure: No alcohol intake: current alcohol intake frequency: 0-2 drinks per day Alcohol type: wine substance use type: former substance user Date of last use: Used Marijuana when he was a teenager brayden/pentecostal: None seatbelt use: sometimes Review of Systems (Anesthesia) ROS Narrative System reviewed and no additional complaints, except as documented.
--- NOTE | 2024-10-14 08:00 | HP.PCM_ITS ---
HPI - General HPI Narrative MARY HERRERA, is a 73 M who presents for screening colonoscopy. Patient's last colonoscopy was about 12 years ago. He denies abdominal pain or blood in the stool. He has no family history of colon cancer. [facility] Medical History Wears hearing aid Alcohol use Back pain Seizures Non-smoker History of edema Leg cramps Landaverde's palsy Fatigue Hypercholesterolemia Home Medications ?Medication ?Instructions ?Recorded ?Last Taken ?Type Selenium Solution 236 ML 6 drp PO DAILY 12/12/22 Unknown History Zinc Citrate 30 mg PO DAILY 12/12/22 Unknown History betaine HCl 300 mg tablet 300 mg PO TIDWMEAL 12/12/22 Unknown History cholecalciferol (vitamin D3) 25 100 mcg PO TIDWMEAL 12/12/22 Unknown History mcg/drop (1,000 unit/drop) oral drops magnesium glycinate-mag oxide 240 mg PO BID 12/12/22 Unknown History medium chain triglycerides 14 15 ml PO TID 12/12/22 Unknown History gram-120 kcal/15 mL oral oil (MCT Oil) omega-3 700 mw-soi-mje-ala-fish 3 cap PO BID 12/12/22 10/09/24 History oil-flaxseed 320 mg-vit E capsuleDR vitamin K2 180 mcg capsule 180 mcg PO DAILY 12/12/22 Unknown History levetiracetam 500 mg tablet 500 mg PO BID #180 tabs 03/05/24 Unknown Rx thiamine 7 mg-vit B2 5 mg-niacin 4 1 tab PO DAILY 10/10/24 Unknown History mg-B12 25 mcg-papain 10 mg tablet (B-Complex Plus B-12) Allergy/AdvReac Type Severity Reaction Status Date / Time mussels Allergy Nausea/Vomi Verified 10/14/24 07:31 ting Family History Mother CVA (cerebral vascular accident) Hypertension Father Myocardial infarction CAD (coronary artery disease) Grandmother Osteoporosis Daughter CVA (cerebral vascular accident) Surgical History Hx of colonoscopy History of cataract surgery Social History household members: spouse current occupational status: employed Smoking Status: Never smoker Electronic Cigarette Use: not used second hand exposure: No alcohol intake: current alcohol intake frequency: 0-2 drinks per day Alcohol type: wine substance use type: former substance user Date of last use: Used Marijuana when he was a teenager brayden/zoroastrianism: None seatbelt use: sometimes Past Medical/Surgical History Planned Operation Planned Operative Procedure(s): COLONOSCOPY Previous Hospitalizations/Surgeries HX Hospitalizations: No Any Problems With Anesthesia: No You/Your Family Experience Fever (Hyperthermia) With Anes: No Cholinesterase deficiency: No Cardiovascular Hx Heart Attack: No Hx Hypertension: No Respiratory Hx Asthma: No Hx Emphysema: No Hx Sleep Apnea: No Hx Respiratory Tract Infection/Cold (presently): No Do You Snore Loudly (louder than talking or can be heard): Yes Do You Often Feel Tired/ Fatigued/ Sleepy Dring Daytime?: No Has Anyone Observed You Stop Breathing During Sleep?: No Result (for STOP score): Negative Smoking Status: Never smoker Gastrointestinal Special diet followed at home: No Neurological Hx Seizures: Yes Does patient have nerve stimulator: No Miscellaneous Recent Exposure to Contagious Disease: No Allergies mussels Allergy (Verified 10/14/24 07:31) Nausea/Vomiting Discharge After D/C, Where Do you Plan to Go: Return Home Vital Signs Vital Signs Vital Signs: 10/14/24 07:33 10/14/24 07:33 10/14/24 07:53 Temperature 97.7 F L 97.7 F L Temperature Source Temporal Pulse Rate 51 L 51 L Respiratory Rate 16 16 Respiratory Pattern Normal Blood Pressure 144/91 H 144/91 H Blood Pressure Mean 108 Blood Pressure Source Monitor Blood Pressure Position Semi-Fowlers Blood Pressure Location Right Arm Pulse Ox 100 100 Oxygen Delivery Method Room Air Room Air Weight Weight: 169 lb 12.095 oz Body Mass Index (BMI) 26.6 Physical Exam Const alert and oriented x3 HEENT normocephalic Eyes PERRL Resp normal respiratory effort and normal air movement Cardio regular rate and regular rhythm GI soft to palpation, non-tender and non-distended Extremity normal to inspection Assessment & Plan Assessment/Plan (1) Encounter for screening for malignant neoplasm of colon: PLAN: I explained endoscopy in detail to the patient. I explained the risks including but not limited to stroke or heart attack with anesthesia, perforation of the GI tract, bleeding, infection. I explained that any of these could necessitate further emergency surgery. The patient understands and all questions were answered sufficiently. The patient wishes to proceed with procedure. Danyel Aquino MD Pager: [facility] [address] [place] [address] [address] [place] [address] Office: Surgery Risks - Colonoscopy Risks Include but are not Limited To: Risks include but are not limited to: Bleeding, perforation requiring further surgery, inability to complete colonoscopy requiring barium enema.
--- NOTE | 2024-10-14 08:28 | OP.CCLET_ITS ---
10/14/2024 Zoya Calderon Md Re : Colonoscopy procedure for Max Ramsey Dear Kvng This procedure was performed on Monday, October 14, 2024. My impressions and recommendations are as follows: Impressions : - The entire examined colon is normal on direct and retroflexion views. - No specimens collected. Recommendations : - Discharge patient to home. - Resume previous diet. - Continue present medications. - Repeat colonoscopy in 10 years for screening purposes. My findings are described in the full procedure note, which is enclosed. If I can be of further assistance, please feel free to contact me at Doctor phone number(s): , Work: . Sincerely, Danyel Aquino MD 10/14/2024 8:27:47 AM This report has been signed electronically.
--- NOTE | 2024-10-14 08:28 | OP.COLON_ITS ---
Patient Name: Max Ramsey Procedure Date: 10/14/2024 8:04 AM Date of : 1950 Age: 73 Procedure: Colonoscopy Indications: Screening for colorectal malignant neoplasm Providers: Danyel Aquino MD Referring MD: Zoya Calderon Md Medicines: Propofol per Anesthesia Patient Profile: This is a 73 year old male. Refer to note in patient chart for documentation of history and physical. Last Colonoscopy: more than 10 years ago. Complications: No immediate complications. Procedure: Pre-Anesthesia Assessment: - Prior to the procedure, a History and Physical was performed, and patient medications and allergies were reviewed. The patient's tolerance of previous anesthesia was also reviewed. The risks and benefits of the procedure and the sedation options and risks were discussed with the patient. All questions were answered, and informed consent was obtained. Prior Anticoagulants: The patient has taken no anticoagulant or antiplatelet agents. After reviewing the risks and benefits, the patient was deemed in satisfactory condition to undergo the procedure. After I obtained informed consent, the scope was passed under direct vision. Throughout the procedure, the patient's blood pressure, pulse, and oxygen saturations were monitored continuously. The Colonoscope was introduced through the anus and advanced to the cecum, identified by appendiceal orifice and ileocecal valve. The colonoscopy was performed without difficulty. The patient tolerated the procedure well. The quality of the bowel preparation was good. The ileocecal valve, appendiceal orifice, and rectum were photographed. Scope In: 8:12:33 AM Scope Withdrawal Time 0 hours 7 minutes 59 seconds Scope Out: 8:25:21 AM Total Procedure Duration Time 0 hours 12 minutes 48 seconds Findings: The entire examined colon appeared normal on direct and retroflexion views. Impression: - The entire examined colon is normal on direct and retroflexion views. - No specimens collected. Recommendation: - Discharge patient to home. - Resume previous diet. - Continue present medications. - Repeat colonoscopy in 10 years for screening purposes. Procedure Code(s): --- Professional --- 50426, Colonoscopy, flexible; diagnostic, including collection of specimen(s) by brushing or washing, when performed (separate procedure) Diagnosis Code(s): --- Professional --- Z12.11, Encounter for screening for malignant neoplasm of colon CPT copyright 2021 [employer]. All rights reserved. The codes documented in this report are preliminary and upon sap plant maintenance consultant review may be revised to meet current compliance requirements. Danyel Aquino MD 10/14/2024 8:27:47 AM This report has been signed electronically. Number of Addenda: 0 Note Initiated On: 10/14/2024 8:04 AM
--- NOTE | 2024-10-14 08:33 | PCM.POST.ANE ---
Anesthesia: Postop Eval I Current Vital Signs Temperature: 97 F Pulse Rate: 51 Blood Pressure: 117/60 Respiratory Rate: 16 Pulse Ox: 100 Oxygen Delivery Method: Room Air Assessment Airway patent: Yes Spontaneous unlabored respirations: Yes Mental status: Asleep nausea: No Vomiting: No Anesthesia Complication: No Fluid Hydration Crystalloid volume administer (ml): 40 Total IV fluid infused: 40 Progress Note Anesthesia document: Postop Eval 1 completed: Yes
--- NOTE | 2024-10-14 08:50 | PCM.POSTANE2 ---
Anesthesia Postop Eval I Sum Postop Eval Completion status Anesthesia document: Postop Eval 1 completed: Yes Anesthesia Postop Eval I Summary Anesthesia Postop Eval I Summary: Anesthesia Postop Eval I: Assessment Summary Airway patent Yes 10/14/24 08:34 [email or web address] Spontaneous unlabored Yes 10/14/24 08:34 [email or web address] respirations Mental status Asleep 10/14/24 08:34 [email or web address] nausea No 10/14/24 08:34 [email or web address] Vomiting No 10/14/24 08:34 [email or web address] Anesthesia Postop Eval I: Fluid Summary Crystalloid volume administer 40 10/14/24 08:34 [email or web address] (ml) Colloids volume administered ( ml) Blood Product volume administered (ml) Total IV fluid infused 40 10/14/24 08:34 [email or web address] Anesthesia Postop Eval I: Summary Notes Anesthesia Complication No 10/14/24 08:34 [email or web address] Anesthesia Complication Comment: Post-operative progress note Anesthesia: Postop Eval II Evaluation Mental status: Awake and Calm Pain Level: 0 nausea: No Vomiting: No Complications Anesthesia Complication: No
== END 2024-10-14 08:57 | disposition home or self-care (01) ==
LOC: EN 07:11 → AC 07:12
PROVIDERS: PCP Family Medicine; Referring Provider Family Medicine; Visit Provider Surgery
PROC: 0DJD8ZZ Inspection of Lower Intestinal Tract, Via Natural or Artificial Opening Endoscopic (ICD-10-PCS; CPT 45378; principal; 2024-10-14 08:10)
DX: Z12.11 Encounter for screening for malignant neoplasm of colon (principal); E78.00 Pure hypercholesterolemia, unspecified
CPT/HCPCS: G0121; A4216; J2405

== ENCOUNTER → 2025-02-19 | Outpatient (CLI) | payer MEDICARE, OTHER, SELFPAY ==
[2025-02-19 17:28] LABS: Ammonia 29.6 umol/L (16-60)
[2025-02-23 13:07] LABS: KEPPRA (LEVETIRACETAM) 14.4 ug/mL (10.0-40.0)
== END | disposition home or self-care (01) ==
LOC: MTLAB 13:35
PROVIDERS: PCP Family Medicine; Referring Provider Psychiatry & Neurology Neurology; Visit Provider Psychiatry & Neurology Neurology
DX: G40.909 Epilepsy, unspecified, not intractable, without status epilepticus (principal)
CPT/HCPCS: 36415; 80177; 82140

== ENCOUNTER → 2025-08-20 | Outpatient (CLI) | payer MEDICARE, OTHER, SELFPAY ==
[2025-08-20 15:27] LABS: PSA,Total - Annual Screen 1.19 ng/mL (0.02-4.00)
== END | disposition home or self-care (01) ==
LOC: MFPLAB 11:47
PROVIDERS: PCP Family Medicine
DX: Z12.5 Encounter for screening for malignant neoplasm of prostate (principal)
CPT/HCPCS: 36415; 84153; G0103